=== PATIENT | female | born 1950 | race Caucasian/White ===

== ENCOUNTER 2019-05-12 14:51 | Emergency (ER) | payer OTHER ==
[~2019-05-12] VITALS: Ht 167.6 cm; Wt 59.9 kg
--- NOTE | 2019-05-12 15:11 | NUR ---
HEADACHE X 5 DAYS. REPORTS PAIN LEVEL 10/10. GRASPING AT HEAD AND VISUALLY UPSET. DENIES VISION CHANGES, DIZZINESS, WEAKNESS, N/V. AOX4, AMBULATORY, VSS, RR EVEN AND UNLABORED. SKIN WARM, DRY, AND INTACT. NO ACUTE DISTRESS NOTED. MADE COMFORTABLE AND READY FOR EVAL.
[2019-05-12] MEDS ORDERED: ACETAMINOPHEN ES 500 MG TABLET ONE (15:22)
[2019-05-12] MEDS ORDERED: ACETAMINOPHEN 325 MG TABLET PO ONE (15:30)
--- NOTE | 2019-05-12 15:37 | NUR ---
PT TAKEN TO CT VIA [facility]
--- NOTE | 2019-05-12 16:30 | NUR ---
Patient discharged to home in stable condition. Written and verbal after care instructions given. Patient verbalizes understanding of instruction.
[2019-05-12 16:46] VITALS: BP 139/83
== END 2019-05-12 16:30 | disposition home or self-care (01) ==
LOC: ER 14:51
DX: G43.909 Migraine, unspecified, not intractable, without status migrainosus (principal); I10 Essential (primary) hypertension; K21.9 Gastro-esophageal reflux disease without esophagitis
CPT/HCPCS: 70450-TC

== ENCOUNTER 2024-01-10 21:03 | Emergency (ER) | payer MEDICARE, OTHER ==
[~2024-01-10] VITALS: Ht 162.6 cm; Wt 77.1 kg
[2024-01-10 22:25] VITALS: BP 162/90; TEMP 98.3; O2SAT 100
== END 2024-01-10 22:39 | disposition home or self-care (01) ==
LOC: ER 21:16
DX: S20.01XA Contusion of right breast, initial encounter (principal); K21.9 Gastro-esophageal reflux disease without esophagitis; X58.XXXA Exposure to other specified factors, initial encounter; Y93.89 Activity, other specified; Y92.89 Other specified places as the place of occurrence of the external cause; Y99.8 Other external cause status